=== PATIENT | female | born 1940 | race Caucasian/White ===

== ENCOUNTER 2022-02-27 12:50 | Inpatient (IN) | payer MEDICARE, BC, OTHER ==
[2022-02-27 14:48] LABS: #Eosinphils 0.1 thou/uL (0.0-0.7); #Lymphocytes 1.1 thou/uL (1.20-3.40); #Monocytes 0.4 thou/uL (0.11-0.59); #Neutrophils 2.9 thou/uL (1.40-6.50); %Basophils 0.4 % (0.0-1.0); %Eosinophils 1.9 % (0.0-10.0); %Lymphocytes 24.3 % (21.0-51.0); %Monocytes 9.6 % (0.0-10.0); %Neutrophils 63.8 % (42.0-75.0); Hemoglobin 13.6 g/dL (12.0-16.0); Mean Corpuscular HGB CONC 33.3 g/dL (32.0-36.0); Mean Corpuscular Hemoglobin 32.4 pg (27.0-31.0); Mean Corpuscular Volume 97.2 fl (78.0-98.0); Mean Platelet Volume 6.5 fL (7.4-10.4); Platelet Count 249 10x3/uL (130-400); RBC Distribution Width 11.4 % (11.5-14.5); Red Blood Cell (RBC) Count 4.18 mill/uL (4.20-5.40); White Blood Cell (WBC) Count 4.6 10x3/uL (4.8-10.8)
[2022-02-27 15:00] LABS: INR-International Normal Ratio 1.1; Prothrombin Time 15.1 sec (12.0-14.7)
[2022-02-27] MEDS ORDERED: Ondansetron ODT 4 MG TAB SL PRN (15:00)
[2022-02-27] MEDS ORDERED: Acetaminophen 325 MG TAB PO PRN (15:00)
[2022-02-27] MEDS ORDERED: Ondansetron PF 4 MG/2 ML Vial IVP PRN ×2 (15:00→15:23)
[2022-02-27] MEDS ORDERED: Sodium Chloride 0.9% 1,000 ML IV SCH ×2 (15:00→22:00)
[2022-02-27 15:01] LABS: PTT 37.1 sec (22.9-36.1)
[2022-02-27 15:05] LABS: ALT (SGPT) 18 U/L (8-55); AST (SGOT) 24 U/L (5-34); Albumin 4.5 g/dL (3.4-4.8); Alkaline Phosphatase 66 U/L (40-110); Anion Gap 14 mmol/L (10-20); BUN (Urea Nitrogen) 10 mg/dL (9.8-20.1); Bilirubin, Total 0.5 mg/dL (0.2-1.2); Calc. Creatinine Clearance 0 mL/min (70-130); Calcium 9.6 mg/dL (7.8-10.44); Carbon Dioxide 25 mmol/L (23-31); Chloride 97 mmol/L (98-107); Estimated GFR 74; Globulin 3.3 g/dL (2.4-3.5); Glucose 104 mg/dL (83-110); Potassium 3.9 mmol/L (3.5-5.1); Protein, Total 7.8 g/dL (5.8-8.1); Sodium 132 mmol/L (136-145)
[2022-02-27] MEDS ORDERED: hydrALAZINE 20 MG/ML VIAL SLOW IVP PRN (15:23)
[2022-02-27] MEDS ORDERED: traMADol HCl 50 MG TAB PO PRN (15:23)
[2022-02-27] MEDS ORDERED: TETANUS, DIPHTHERIA TOX,ADULT (TDVAX) 0.5 ML VIAL IM ONE (15:23)
[2022-02-27] MEDS ORDERED: Ondansetron ODT 4 MG TAB PO PRN (15:23)
[2022-02-27] MEDS ORDERED: Dextrose 50% Abboject 50 ML SYRINGE SLOW IVP PRN (15:23)
[2022-02-27] MEDS ORDERED: Dextrose 5% in Water 1,000 ML IV PRN (15:23)
[2022-02-27] MEDS ORDERED: Triple Antibiotic Oint 1 GM Packet ONE (15:30)
[2022-02-27 15:48] LABS: Phosphorus 2.9 mg/dL (2.3-4.7)
[2022-02-27] MEDS ORDERED: Morphine 4 MG/ML VIAL SLOW IVP PRN (16:43)
[2022-02-27 17:24] LABS: Bilirubin Negative (Negative); Blood, Urine Negative (Negative); Clarity Clear (Clear); Glucose, Urine (Dipstick) Normal (Negative); Ketone, Urine Negative (Negative); Leukocyte Negative Leu/uL (Negative); Nitrite Negative (Negative); Protein, Urine (Dipstick) Negative (Neg-Trace); Specific Gravity, Urine 1.007 (1.002-1.036); Urobilinogen Normal mg/dL (Less than 2)
[2022-02-27] MEDS: Acetaminophen 325 MG TAB PO SCH ×2 (18:05→23:27)
[2022-02-27] MEDS: Sodium Chloride 0.9% 1,000 ML IV SCH (18:05)
[2022-02-27] MEDS: Ketorolac Tromethamine 30 MG/ML VIAL IVP SCH ×2 (18:06→23:28)
[2022-02-27 18:39] VITALS: BMI 26.9
[2022-02-27] MEDS: Polyethylene Glycol OPTH DROP 15 ML BOT EA EYE PRN (20:34)
[2022-02-27] MEDS: Senokot S 8.6-50 MG TAB PO SCH (20:35)
[2022-02-27] MEDS: Famotidine 20 MG TAB PO SCH (20:35)
[2022-02-27] MEDS: Dronedarone HCl 400 MG TAB PO SCH (20:35)
[2022-02-27] MEDS: Cyclobenzaprine 10 MG TAB PO PRN (20:36)
[2022-02-28] MEDS: Acetaminophen 325 MG TAB PO SCH ×3 (05:22→17:13)
[2022-02-28] MEDS: Ketorolac Tromethamine 30 MG/ML VIAL IVP SCH ×3 (05:23→17:14)
[2022-02-28] MEDS: Sodium Chloride 0.9% 1,000 ML IV SCH (05:23)
[2022-02-28 06:43] LABS: Anion Gap 11 mmol/L (10-20); BUN (Urea Nitrogen) 10 mg/dL (9.8-20.1); Calc. Creatinine Clearance 55 mL/min (70-130); Calcium 8.4 mg/dL (7.8-10.44); Carbon Dioxide 21 mmol/L (23-31); Chloride 101 mmol/L (98-107); Estimated GFR 87; Glucose 82 mg/dL (83-110); Magnesium 1.9 mg/dL (1.6-2.6); Sodium 129 mmol/L (136-145)
[2022-02-28 07:19] LABS: Band 6 % (5-11); Eosinophils 5 % (0-10); Lymphocytes 38 % (21-51); MDiff Complete? YES; Mean Corpuscular Hemoglobin 33.5 pg (27.0-31.0); Mean Corpuscular Volume 98.4 fl (78.0-98.0); Mean Platelet Volume 6.4 fL (7.4-10.4); Monocytes 11 % (0-10); Neutrophil 40 % (42-75); Platelet Count 206 10x3/uL (130-400); RBC Distribution Width 11.4 % (11.5-14.5); Red Blood Cell (RBC) Count 3.28 mill/uL (4.20-5.40); White Blood Cell (WBC) Count 4.7 10x3/uL (4.8-10.8)
[2022-02-28] MEDS: Polyethylene Glycol 3350 17 GM Packet PO SCH (07:26)
[2022-02-28] MEDS: Famotidine 20 MG TAB PO SCH ×2 (07:26→21:07)
[2022-02-28] MEDS: Senokot S 8.6-50 MG TAB PO SCH ×2 (07:26→21:05)
[2022-02-28] MEDS ORDERED: Neomycin-Polymyxin 1 ML AMP ONE (07:38)
[2022-02-28] MEDS ORDERED: Bupivacaine HCl 0.5%/Epinephrine 1:200,000/PF 30 ml Vial ONE (07:38)
[2022-02-28] MEDS ORDERED: CEFAZOLIN 2 GM VIAL ONE ×2 (07:58→08:22)
[2022-02-28] MEDS ORDERED: Sodium Chloride 0.9% 100 ML ONE (07:58)
[2022-02-28] MEDS ORDERED: Fentanyl 100 MCG/2 ML VIAL ONE (08:01)
[2022-02-28] MEDS ORDERED: Sodium Phosphate 30 MMOL in Sodium Chloride 0.9% 250 ML 250 ML IVPB SCH (08:15)
[2022-02-28] MEDS ORDERED: Magnesium 2 GM/50 ML(in water) 2 GM in Premix Bag 1 BAG IVPB SCH (08:15)
[2022-02-28] MEDS ORDERED: Dexamethasone 20 MG/5 ML VIAL ONE (08:35)
[2022-02-28] MEDS ORDERED: Ondansetron PF 4 MG/2 ML Vial ONE (08:35)
[2022-02-28] MEDS ORDERED: PROPOFOL 200 MG/20 ML VIAL ONE (08:35)
[2022-02-28] MEDS ORDERED: Phenylephrine 10 MG/ML VIAL ONE (08:35)
[2022-02-28] MEDS ORDERED: Ketorolac Tromethamine 30 MG/ML VIAL ONE (08:35)
[2022-02-28] MEDS ORDERED: ePHEDrine 50 MG/ML VIAL ONE (08:35)
[2022-02-28] MEDS ORDERED: Promethazine HCl 25 MG/ML VIAL IVPB PRN (09:35)
[2022-02-28] MEDS ORDERED: Ondansetron HCl/PF 4 MG/2 ML Vial IVP PRN (09:35)
[2022-02-28] MEDS ORDERED: Promethazine HCl 25 MG/ML VIAL IM PRN (09:35)
[2022-02-28] MEDS ORDERED: HYDROmorphone 2 MG/ML VIAL SLOW IVP PRN (09:35)
[2022-02-28] MEDS ORDERED: HYDROcodone/Acetaminophen 5/325 mg Tablet PO PRN (09:53)
[2022-02-28] MEDS ORDERED: Communication Order-Pharmacy FS PRN (10:00)
[2022-02-28] MEDS: Dronedarone HCl 400 MG TAB PO SCH ×2 (10:07→21:05)
[2022-02-28] MEDS: Polyethylene Glycol OPTH DROP 15 ML BOT EA EYE PRN (11:49)
[2022-02-28] MEDS ORDERED: TETANUS, DIPHTHERIA TOX,ADULT (TDVAX) 0.5 ML VIAL IM ONE (12:00)
[2022-02-28] MEDS: Rosuvastatin 5 MG TAB PO SCH (21:05)
[2022-02-28] MEDS: Apixaban 5 MG TAB PO SCH (21:07)
[2022-02-28] MEDS: Cyclobenzaprine 10 MG TAB PO PRN (21:07)
[2022-03-01] MEDS: Ketorolac Tromethamine 30 MG/ML VIAL IVP SCH ×4 (00:16→17:41)
[2022-03-01] MEDS: Acetaminophen 325 MG TAB PO SCH ×2 (00:17→05:34)
[2022-03-01] MEDS: Dronedarone HCl 400 MG TAB PO SCH ×2 (08:15→20:38)
[2022-03-01] MEDS: Apixaban 5 MG TAB PO SCH ×2 (08:16→20:38)
[2022-03-01] MEDS: Senokot S 8.6-50 MG TAB PO SCH ×2 (08:16→20:39)
[2022-03-01] MEDS: Polyethylene Glycol 3350 17 GM Packet PO SCH (08:16)
[2022-03-01] MEDS: Famotidine 20 MG TAB PO SCH ×2 (08:16→20:38)
[2022-03-01 09:27] LABS: #Lymphocytes 1.5 thou/uL (1.20-3.40); #Monocytes 0.7 thou/uL (0.11-0.59); #Neutrophils 6.2 thou/uL (1.40-6.50); %Basophils 0.1 % (0.0-1.0); %Eosinophils 0.4 % (0.0-10.0); %Lymphocytes 17.3 % (21.0-51.0); %Monocytes 8.3 % (0.0-10.0); %Neutrophils 73.8 % (42.0-75.0); Hemoglobin 10.9 g/dL (12.0-16.0); Mean Corpuscular Hemoglobin 32.6 pg (27.0-31.0); Mean Corpuscular Volume 98.9 fl (78.0-98.0); Mean Platelet Volume 6.7 fL (7.4-10.4); Platelet Count 222 10x3/uL (130-400); RBC Distribution Width 11.5 % (11.5-14.5); Red Blood Cell (RBC) Count 3.34 mill/uL (4.20-5.40); White Blood Cell (WBC) Count 8.4 10x3/uL (4.8-10.8)
[2022-03-01 09:31] LABS: Anion Gap 15 mmol/L (10-20); BUN (Urea Nitrogen) 10 mg/dL (9.8-20.1); Calc. Creatinine Clearance 53 mL/min (70-130); Calcium 8.8 mg/dL (7.8-10.44); Carbon Dioxide 21 mmol/L (23-31); Chloride 98 mmol/L (98-107); Estimated GFR 83; Glucose 125 mg/dL (83-110); Magnesium 2.2 mg/dL (1.6-2.6); Phosphorus 2.9 mg/dL (2.3-4.7); Potassium 4.3 mmol/L (3.5-5.1); Sodium 130 mmol/L (136-145)
[2022-03-01] MEDS: Acetaminophen 500 MG TAB PO SCH ×2 (11:18→17:40)
[2022-03-01] MEDS: Gabapentin 100 MG CAP PO SCH ×2 (11:27→17:40)
[2022-03-01] MEDS: Rosuvastatin 5 MG TAB PO SCH (20:38)
[2022-03-01 22:00] VITALS: BP 171/92; TEMP 98
== END 2022-03-01 21:50 | DRG 488 ==
LOC: ERS 12:50 → SURG B 14:34
PROVIDERS: ADMIT Surgery; ATTEND Surgery
PROC: 0QBF0ZZ Excision of Left Patella, Open Approach (ICD-10-PCS; principal; 2022-02-28)
DX: S82.042A Displaced comminuted fracture of left patella, initial encounter for closed fracture (principal); E87.1 Hypo-osmolality and hyponatremia; Z20.822 Contact with and (suspected) exposure to COVID-19; Z88.6 Allergy status to analgesic agent; Z91.041 Radiographic dye allergy status; Z88.8 Allergy status to other drugs, medicaments and biological substances; Z79.01 Long term (current) use of anticoagulants; I48.91 Unspecified atrial fibrillation; I10 Essential (primary) hypertension; W01.0XXA Fall on same level from slipping, tripping and stumbling without subsequent striking against object, initial encounter; Z90.711 Acquired absence of uterus with remaining cervical stump; S80.11XA Contusion of right lower leg, initial encounter
CPT/HCPCS: 36415; 70450; 71045; 80048; 80053; 81003; 83735; 84100; 84484; 85025; 85610; 85730; 93005; G0390; J1100; J1885; J2370; J2405; J2704; J3010; J3475; J3490; J7050; U0003; U0005

== ENCOUNTER 2022-10-26 07:20 | Day surgery (SDC) | payer BC ==
[2022-10-25 08:13] VITALS: BMI 22.2
[2022-10-26] MEDS ORDERED: PROPOFOL 200 MG/20 ML VIAL ONE (09:58)
[2022-10-26] MEDS ORDERED: Lidocaine 1% PF 5 ML VIAL ONE (09:58)
== END 2022-10-26 11:35 | disposition home or self-care (01) ==
LOC: SDC 07:20
PROVIDERS: ATTEND Internal Medicine Gastroenterology
PROC: 0DJD8ZZ Inspection of Lower Intestinal Tract, Via Natural or Artificial Opening Endoscopic (ICD-10-PCS; principal; 2022-10-26)
DX: Q43.8 Other specified congenital malformations of intestine (principal); K64.9 Unspecified hemorrhoids; R19.5 Other fecal abnormalities; I48.91 Unspecified atrial fibrillation; I10 Essential (primary) hypertension; E78.5 Hyperlipidemia, unspecified; M19.90 Unspecified osteoarthritis, unspecified site; E55.9 Vitamin D deficiency, unspecified; Z86.010 Personal history of colon polyps; Z88.5 Allergy status to narcotic agent; Z91.048 Other nonmedicinal substance allergy status
CPT/HCPCS: J2704

== ENCOUNTER 2023-01-24 09:11 | Outpatient (CLI) | payer BC | END 2023-01-24 09:12 | disposition home or self-care (01) | LOC: NM 09:11 | PROVIDERS: ATTEND Anesthesiology Pain Medicine | DX: S22.070G Wedge compression fracture of T9-T10 vertebra, subsequent encounter for fracture with delayed healing (principal); S32.029D Unspecified fracture of second lumbar vertebra, subsequent encounter for fracture with routine healing | CPT/HCPCS: 78306 ==

== ENCOUNTER 2023-05-11 09:44 | Outpatient (CLI) | payer BC | END 2023-05-11 09:45 | disposition home or self-care (01) | LOC: MRI 09:44 | PROVIDERS: ATTEND Internal Medicine | DX: S22.000D Wedge compression fracture of unspecified thoracic vertebra, subsequent encounter for fracture with routine healing (principal); M43.8X4 Other specified deforming dorsopathies, thoracic region | CPT/HCPCS: 72146 ==

== ENCOUNTER 2024-01-03 16:12 | Emergency (ER) | payer BC ==
[2024-01-03] MEDS ORDERED: CEFAZOLIN 1 GM VIAL ONE (16:33)
[2024-01-03] MEDS ORDERED: Sodium Chloride 0.9% 100 ML ONE (16:33)
[2024-01-03] MEDS ORDERED: Boostrix 0.5 ML (Tdap) VIAL (>/=7 yrs of age) ONE (16:34)
[2024-01-03 16:46] LABS: #Basophils Less than 0.03 10x3/uL (0.0-0.2); %Basophils 0.4 % (0.0-1.0); %Eosinophils 2.9 % (0.0-10.0); %Lymphocytes 32.6 % (21.0-51.0); %Monocytes 15.4 % (0.0-10.0); %Neutrophils 48.5 % (42.0-75.0); Hematocrit 36.1 % (36.0-47.0); Hemoglobin 12.5 g/dL (12.0-16.0); Mean Corpuscular HGB CONC 34.6 g/dL (32.0-36.0); Mean Corpuscular Hemoglobin 32.6 pg (27.0-31.0); Mean Platelet Volume 8.3 fL (7.4-10.4); Platelet Count 203 10x3/uL (130-400); RBC Distribution Width 12.9 % (11.5-14.5); Red Blood Cell (RBC) Count 3.84 mill/uL (4.20-5.40)
[2024-01-03 17:05] LABS: INR-International Normal Ratio 1.2; Prothrombin Time 15.6 sec (12.0-14.7)
[2024-01-03 17:06] LABS: PTT 34.6 sec (22.9-36.1)
[2024-01-03 17:14] LABS: ALT (SGPT) 25 U/L (8-55); AST (SGOT) 27 U/L (5-34); Albumin 4.1 g/dL (3.4-4.8); Alkaline Phosphatase 55 U/L (40-110); Anion Gap 15 mmol/L (10-20); BUN (Urea Nitrogen) 15 mg/dL (9.8-20.1); Bilirubin, Total 0.5 mg/dL (0.2-1.2); Calc. Creatinine Clearance 0 mL/min (70-130); Calcium 9.2 mg/dL (7.8-10.44); Carbon Dioxide 20 mmol/L (23-31); Chloride 97 mmol/L (98-107); Estimated GFR 57; Globulin 3.5 g/dL (2.4-3.5); Glucose 115 mg/dL (83-110); Potassium 3.9 mmol/L (3.5-5.1); Protein, Total 7.6 g/dL (5.8-8.1); Sodium 128 mmol/L (136-145)
== END 2024-01-03 18:13 | disposition home or self-care (01) ==
LOC: ERS 16:12
DX: S02.2XXA Fracture of nasal bones, initial encounter for closed fracture (principal); S01.21XA Laceration without foreign body of nose, initial encounter; I48.91 Unspecified atrial fibrillation; Z79.01 Long term (current) use of anticoagulants; Z23 Encounter for immunization; W18.30XA Fall on same level, unspecified, initial encounter
CPT/HCPCS: 70450; 70486; 72125; 80053; 85025; 85610; 85730; 90471; 90715; 96374; G0390; J0690

== ENCOUNTER 2025-01-14 10:47 | Outpatient (CLI) | payer BC | END 2025-01-14 10:48 | disposition home or self-care (01) | LOC: BICMAMMO 10:47 | PROVIDERS: ATTEND Internal Medicine | DX: Z12.31 Encounter for screening mammogram for malignant neoplasm of breast (principal); M80.00XA Age-related osteoporosis with current pathological fracture, unspecified site, initial encounter for fracture; Z78.0 Asymptomatic menopausal state | CPT/HCPCS: 77063; 77067; 77080 ==